=== PATIENT | male | born 1990 | race African-American/Black ===

== ENCOUNTER 2021-10-23 08:31 | Emergency (ER) | payer SELFPAY ==
[~2021-10-23] VITALS: Ht 180.3 cm; Wt 65.8 kg
--- NOTE | 2021-10-23 09:00 | NUR ---
pt came to ER c/o rectal bleed x 3 days. A&Ox4, breathing even and unlabored, pulses 2+ bilaterally. Assisted to ER bed 1, changed to gown, blankets given, laying comfortably in bed.
--- NOTE | 2021-10-23 09:27 | NUR ---
FECAL OCCULT SAMPLE OBTAINED AND SENT TO LAB
[2021-10-23] MEDS ORDERED: ONDANSETRON HCL/PF 4 MG/2 ML VIAL IV ONE (09:30)
[2021-10-23] MEDS ORDERED: ACETAMINOPHEN ES 500 MG TABLET PO ONE (09:30)
[2021-10-23] MEDS ORDERED: MAG HYDROX/AL HYDROX/SIMETH 30 ML UDC PO ONE (09:30)
[2021-10-23] MEDS ORDERED: FAMOTIDINE/PF INJ 20 MG/2 ML VIAL IV ONE ×2 (09:30→10:41)
[2021-10-23] MEDS ORDERED: ACETAMINOPHEN ES 500 MG TABLET ONE (09:41)
--- NOTE | 2021-10-23 09:46 | NUR ---
XRAY AT BEDSIDE
[2021-10-23 09:49] LABS: BASOPHILS % (AUTO) 0.2 % (0.0-2.0); EOSINOPHILS % (AUTO) 0.5 % (0.0-6.0); HEMATOCRIT 43 % (39-51); HEMOGLOBIN 14.6 g/dL (13.5-17.5); LYMPHOCYTES # (AUTO) 1.1 K/uL (0.8-4.8); LYMPHOCYTES % (AUTO) 11.7 % (20.0-44.0); MEAN CORPUSCULAR HGB CONC 34 g/dl (31.0-36.0); MEAN CORPUSCULAR VOLUME 93 fL (80-96); MONOCYTES # (AUTO) 1.6 K/uL (0.1-1.30); MONOCYTES % (AUTO) 17.8 % (2.0-12.0); NEUTROPHILS # (AUTO) 6.3 K/uL (1.8-8.9); NEUTROPHILS % (AUTO) 69.8 % (43.0-81.0); PLATELET COUNT (AUTO) 283 K/uL (150-450); RED BLOOD CELL COUNT(AUTO) 4.61 MIL/uL (4.5-6.0); WHITE BLOOD COUNT (AUTO) 9.1 K/uL (4.3-11.0)
[2021-10-23 09:51] LABS: OCCULT BLOOD STOOL POSITIVE (NEGATIVE)
[2021-10-23 10:08] LABS: ALANINE AMINOTRANSFERASE 16 U/L (12-78); ALBUMIN 3.1 g/dL (3.4-5.0); ALKALINE PHOSPHATASE 87 U/L (46-116); ASPARTATE AMINOTRANSFERASE 17 U/L (15-37); BILIRUBIN,DIRECT 0.2 mg/dL (0.0-0.2); BILIRUBIN,TOTAL 0.6 mg/dL (0.2-1.0); CALCIUM, SERUM 8.5 mg/dL (8.5-10.1); CARBON DIOXIDE 26 mmol/L (21-32); CHLORIDE 92 mmol/L (98-107); CREATININE 1.1 mg/dL (0.6-1.3); GLUCOSE 97 mg/dL (74-106); LIPASE 132 U/L (73-393); POTASSIUM 3.4 mmol/L (3.5-5.1); SODIUM SERUM 128 mmol/L (136-145); TOTAL PROTEIN, SERUM 8.3 g/dL (6.4-8.2); UREA NITROGEN, BLOOD 29 mg/dL (7-18)
[2021-10-23 10:14] LABS: ACETAMINOPHEN < 10 ug/ml (10-30); ALCOHOL, BLOOD < 3 mg/dL (0-0)
[2021-10-23] MEDS ORDERED: ONDANSETRON HCL/PF 4 MG/2 ML VIAL ONE (10:41)
[2021-10-23] MEDS ORDERED: MAG HYDROX/AL HYDROX/SIMETH 30 ML UDC ONE (10:41)
[2021-10-23] MEDS ORDERED: IV NS 0.9% 1,000 ML IV ONE (11:00)
[2021-10-23] MEDS ORDERED: POTASSIUM CHLORIDE 20 MEQ TAB.PRT.SR PO ONE ×2 (11:00→11:36)
[2021-10-23 11:11] LABS: BAND % (MANUAL) 5 % (0.0-5.0); LYMPHOCYTES % (MANUAL) 13 % (16-48); MONOCYTES % (MANUAL) 15 % (0-11.0); MYELOCYTES % 1 % (0-0); NEUTROPHILS % (MANUAL) 66 (42-76)
[2021-10-23] MEDS ORDERED: FAMO20TA8 PO (11:36)
[2021-10-23] MEDS ORDERED: ACET-73 PO (11:36)
--- NOTE | 2021-10-23 11:40 | NUR ---
PT LAYING IN BED, NEEDS MET, VS STABLE
--- NOTE | 2021-10-23 12:10 | NUR ---
pt refuses to provide urine
--- NOTE | 2021-10-23 12:32 | NUR ---
PT LAYING IN BED COMFORTABLY. IV FLUIDS RUNNING. NEEDS MET
--- NOTE | 2021-10-23 13:11 | NUR ---
Patient discharged to home in stable condition. Written and verbal after care instructions given. Patient verbalizes understanding of instruction.
--- NOTE | 2021-10-23 13:11 | NUR ---
IV removed. Catheter intact and site benign. Pressure and 4x4 applied to site. No bleeding noted.
[2021-10-23 13:59] VITALS: BP 101/66
== END 2021-10-23 13:03 | disposition home or self-care (01) ==
LOC: ER 08:33
DX: K92.2 Gastrointestinal hemorrhage, unspecified (principal); E87.6 Hypokalemia; N28.9 Disorder of kidney and ureter, unspecified; Z79.899 Other long term (current) drug therapy; Z60.2 Problems related to living alone
CPT/HCPCS: 36415; 71045; 74022; 80048; 80076; 80143; 80320; 82272; 83690; 85007; 85025; 96361; 96374; 96375; 99284; J2405; J3490; J7030; G0480